=== PATIENT | female | born 1970 | race African-American/Black ===

== ENCOUNTER 2020-08-20 08:40 | Emergency (ER) | payer OTHER, SELFPAY ==
--- NOTE | ~2020-08-20 | XR_ITS ---
XR shoulder RT min 2V 08/20/2020 09:04 Indication: Right anterior shoulder pain Procedure: 4 views right shoulder Comparison: No prior studies for comparison. Findings: There is mild polyarticular osteoarthritis of the right shoulder. No fracture or traumatic malalignment. Anatomic alignment. No significant soft tissue abnormality. Lungs are unremarkable. No foreign bodies. Impression: 1: Mild polyarticular osteoarthritis of the right shoulder. Reviewed, dictated and finalized at location B. Impression: 1: Mild polyarticular osteoarthritis of the right shoulder.
[2020-08-20 08:50] VITALS: BP 173/101; PULSE 71; RESP 18; TEMP 36.3; O2SAT 97
--- NOTE | 2020-08-20 08:55 | ED.GENADULT ---
HPI - General Adult General Chief complaint: Extremity Injury, Upper Stated complaint: right shoulder pain Time Seen by Provider: 08/20/20 08:43 Source: RN notes reviewed History of Present Illness HPI narrative: Patient presents to emergency department from home for right shoulder pain. 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 and that turning the wheels and these buses seem to aggravate the symptoms even more states she took no previous pain medications morning she denies any fevers or chills chest pain shortness of breath numbness or tingling in extremities or any other symptoms patient states she drove herself to the emergency department Related Data Allergies Allergy/AdvReac Type Severity Reaction Status Date / Time Penicillins Allergy Itching Verified 08/20/20 08:53 Review of Systems Review of Systems: Narrative: Gen.: Denies fevers or chills ENT: Denies congestion Respiratory: Denies shortness of breath or cough CV: Denies chest pain or palpitations GI: Denies abdominal pain nausea, emesis Musculoskeletal: HPI Neuro: Denies numbness, tingling, weakness or focal weakness Skin: Denies rash Except as documented, all other systems reviewed and negative [facility] Past Medical History Medical History (Updated 08/20/20 @ 09:18 by Eduardo Kenyon DO) Patient denies significant medical history Family History Family History (Updated 01/22/14 @ 07:13 by DOCTOR UNKNOWN) Other Family history of arthritis Social History Social History Smoking status: Never smoker Alcohol intake: current Gender identity (if verbalized by the patient): Female Exam Narrative: Exam Narrative: APPEARANCE: No acute distress, nontoxic, resting in bed EYES: EOMI HEENT: Normocephalic, atraumatic, OMM RESPIRATORY: No respiratory distress Clear to auscultation bilaterally with no rhonchi wheezing or rales. CARDIOVASCULAR: Regular rate and rhythm without murmurs rubs or gallops. ABDOMINAL: Soft, nontender, nondistended, no rebound or guarding MUSCULOSKELETAl: Moves all extremities. No clubbing, cyanosis or edema. Tender palpation of the right anterior and lateral shoulder no swelling or ecchymosis pain with flexion or abduction greater than 45 degrees with passive range of motion pain with flexion abduction greater than 90 degrees no tenderness of the right elbow or wrist, radial pulse 2+ neurovascular intact NEURO: Awake and alert. Following commands, speech normal, no focal deficits SKIN:: Warm, dry. No rashes lesions or abrasions PSYCHIATRIC: Normal affect/mood, Course Course Emergency Course: Discussed with patient results of workup and diagnosis. Discussed need for follow-up with primary care, proper use of medication, and reasons to return to the emergency department. 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
--- NOTE | 2020-08-20 09:03 | ECG_ITS ---
Measurements Intervals [place] Rate: 65 P: 51 [place]: 176 QRS: 5 QRSD: 89 T: 22 QT: 422 QTc: 442 Interpretive Statements SINUS RHYTHM POSSIBLE LEFT ATRIAL ENLARGEMENT VOLTAGE CRITERIA FOR LVH BORDERLINE T WAVE ABNORMALITY- ANTEROLAT/INF LEADS BASELINE ARTIFACT- V1 BORDERLINE ECG Electronically Signed On 08-20-2020 10:26:06 CDT by Eros Granda D.O.
[2020-08-20] MEDS: IBUPROFEN 600 MG TABLET PO (09:06)
[2020-08-20 09:26] VITALS: BP 160/96; PULSE 66; RESP 18; O2SAT 99
== END 2020-08-20 09:30 | disposition home or self-care (01) ==
PROVIDERS: Emergency Provider Emergency Medicine; PCP Internal Medicine
DX: M25.511 Pain in right shoulder (principal); M19.011 Primary osteoarthritis, right shoulder; R94.31 Abnormal electrocardiogram [ECG] [EKG]
CPT/HCPCS: 73030; 93005; 99283; A4565; A9270

== ENCOUNTER → 2020-10-04 10:07 | Outpatient (CLI) | payer OTHER, SELFPAY ==
--- NOTE | ~2020-10-04 | MR_ITS ---
EXAMINATION: MR shoulder RT wo con DATE: 10/04/2020 10:44 INDICATION: Right shoulder pain TECHNIQUE: Magnetic resonance imaging (MRI) of the right shoulder was performed without intravenous c ontrast. Sequences included axial PD-weighted FS FSE, coronal oblique PD-weighted FS FSE, coronal obl ique T2-weighted FS FSE, sagittal PD-weighted FS FSE, and sagittal T1-weighted SE. COMPARISON: None. FINDINGS: Coracoacromial arch: The acromion undersurface is curved in morphology (type II). The coracoacromial ligament is normal. M oderate acromioclavicular osteoarthritis with subarticular cystic change at both sides of the joint s pace. Rotator cuff: Moderate supraspinatus and infraspinatus tendinopathy. There is a high-grade partial if not full-thic kness tear measuring approximately 10 mm AP and 10 mm medial to lateral. The teres minor tendon is no rmal. Moderate subscapularis tendinopathy. Mild fatty atrophy of the supraspinatus and infraspinatus tendons. Biceps tendon, glenoid labrum and glenohumeral cartilage: Moderate tendinopathy of the intra-articular long head biceps tendon without definitive tear. Mild gl enohumeral osteoarthritis with partial thickness cartilage loss along the superomedial aspect of the humeral head. And along the posterior and superior margins of the glenoid. Irregular degenerative tea ring of the posterior superior to anteroinferior glenoid labrum. Fluid: Physiologic amount of fluid in the glenohumeral joint and biceps tendon sheath. No loose osteochondra l bodies. Small amount of fluid in the subacromial/subdeltoid bursa as well as the subcoracoid bursa which could be due to either full-thickness tear/perforation of the rotator cuff or mild bursitis. Bones: Bone alignment is normal. No fracture or pathologic marrow replacing process. Cystic change at the gr eater and lesser tuberosities. IMPRESSION: 1. Moderate subscapularis, supraspinatus and infraspinatus tendinopathy with small high-grade partial if not full-thickness tear at the superior facet footplate of the supraspinatus tendon. 2. Mild glenohumeral osteoarthritis with degenerative tearing of the posterior superior to anterosupe rior glenoid labrum. 3. Moderate tendinopathy of the intra-articular long head biceps tendon tear 4. Moderate acromioclavicular osteoarthritis. 5. Small amount fluid in the subacromial/subdeltoid and subcoracoid bursae which could be due to exte nsion of joint fluid through the full-thickness rotator cuff tear/perforation and/or due to bursitis. Reviewed, dictated and finalized at location A. IMPRESSION: 1. Moderate subscapularis, supraspinatus and infraspinatus tendinopathy with sm all high-grade partial if not full-thickness tear at the superior facet footpla te of the supraspinatus tendon. 2. Mild glenohumeral osteoarthritis with degenerative tearing of the posterior superior to anterosuperior glenoid labrum. 3. Moderate tendinopathy of the intra-articular long head biceps tendon tear 4. Moderate acromioclavicular osteoarthritis. 5. Small amount fluid in the subacromial/subdeltoid and subcoracoid bursae whic h could be due to extension of joint fluid through the full-thickness rotator c uff tear/perforation and/or due to bursitis.
== END ==
DX: M25.511 Pain in right shoulder (principal); S43.431A Superior glenoid labrum lesion of right shoulder, initial encounter; S46.111A Strain of muscle, fascia and tendon of long head of biceps, right arm, initial encounter; M19.011 Primary osteoarthritis, right shoulder
CPT/HCPCS: 73221

== ENCOUNTER 2022-02-09 18:43 | Emergency (ER) | payer OTHER, SELFPAY ==
--- NOTE | ~2022-02-09 | XR_ITS ---
EXAMINATION: XR chest 2V DATE: 02/09/2022 19:24 INDICATION: Wheezing. TECHNIQUE: Frontal and lateral views of the chest were obtained. COMPARISON: Chest 2 views 10/15/2018, chest CT 10/15/2018 FINDINGS: There is chronic mild elevation of right hemidiaphragm. No pneumonia, pleural effusion, or pneumothorax. The heart size is normal. IMPRESSION: 1. No acute cardiopulmonary disease. Reviewed, dictated and finalized at location A.
--- NOTE | ~2022-02-09 | CT_ITS ---
EXAMINATION: CTA chest PE abdomen pel DATE: 02/10/2022 00:31 INDICATION: Shortness of breath and wheezing TECHNIQUE: Computed tomography angiography (CTA) of the chest was performed with 100 mL Omnipaque-350 intravenous contrast timed to evaluate the pulmonary arteries. Subsequent postcontrast images of the abdomen and pelvis are obtained. Coronal maximum intensity projection 3D-reconstructions were create d by the technologist. The dose-length product (DLP) was 2317.72 mGy-cm. Automated exposure control a nd iterative reconstruction technique were employed. COMPARISON: 10/15/2018 FINDINGS: CTA CHEST: The pulmonary arteries are well-opacified. No pulmonary embolism is identified. There is m ild dependent atelectasis. The lungs are free of focal airspace opacities. No pleural effusion or pne umothorax. No pathologically enlarged thoracic lymph nodes are identified. The heart size is normal. There is mild thoracic spondylosis. ABDOMEN/PELVIS CT: The liver, spleen, pancreas, gallbladder, and adrenal glands are normal. There is a 2 mm nonobstructing stone of the right kidney upper pole. There is a 2 mm nonobstructing stone in t he left mid kidney. No pathologically enlarged abdominal or pelvic lymph nodes are identified. There is no free intraperitoneal gas or evidence of bowel obstruction. There is a surgical anastomosis in t he sigmoid colon. The appendix is normal. A uterine fibroid is noted. There is mild lumbar spondylosi s. IMPRESSION: 1. No acute cardiopulmonary abnormality. 2. No acute abnormality of the abdomen or pelvis. 3. Bilateral nonobstructing nephrolithiasis. Reviewed, dictated and finalized at location B.
[2022-02-09 18:46] VITALS: BP 179/93; PULSE 74; RESP 20; TEMP 36.3; O2SAT 100
--- NOTE | 2022-02-09 18:49 | ECG_ITS ---
Measurements Intervals [place] Rate: 68 P: 54 [place]: 179 QRS: 8 QRSD: 79 T: 46 QT: 384 QTc: 411 Interpretive Statements SINUS RHYTHM LEFT VENTRICULAR HYPERTROPHY BORDERLINE ECG COMPARED TO ECG 08/20/2020 09:11:03 NO SIGNIFICANT CHANGES Electronically Signed On 02-09-2022 21:42:05 CDT by Eros Granda D.O.
[2022-02-09 19:14] LABS: Basophils Absolute Auto 0.1 K/mm3 (0.0-0.1); Basophils Percent Auto 1.1 % (0.2-1.2); Eosinophils Absolute Auto 0.6 K/mm3 (0-0.3); Eosinophils Percent Auto 11.1 % (0-4.4); Hematocrit 36.9 % (37.0-47.0); Immature Granulocyte Absolute 0.01 K/mm3 (0.00-0.031); Immature Granulocyte Percent A 0.2 % (0-0.5); Lymphocytes Absolute Auto 2.35 K/mm3 (0.9-3.2); Lymphocytes Percent Auto 42.7 % (18.3-44.2); Mean Corpuscular HGB Conc 29.8 g/dl (32-36); Mean Corpuscular Hemoglobin 26.9 pg (26-34); Mean Corpuscular Volume 90.2 fl (80-100); Mean Platelet Volume 9.9 fl (7.4-10.4); Monocytes Absolute Auto 0.5 K/mm3 (0.1-0.6); Monocytes Percent Auto 9.5 % (2.6-8.5); Neutrophils Percent Auto 35.4 % (45.5-73.1); Platelet Count Result 283 k/mm3 (150-375); Red Blood Count 4.09 M/mm3 (4.2-5.4); Red Cell Distribution Width 19.4 % (11.5-14.5); White Blood Count 5.5 K/mm3 (4.5-10.0)
[2022-02-09 19:23] LABS: Alanine Aminotransferase 23 U/L (6-35); Albumin Level 4.5 g/dL (3.5-5.1); Alkaline Phosphatase 75 U/L (38-126); Anion Gap 16 mmol/L (8-16); Aspartate Amino Transferase 24 U/L (14-36); Bilirubin,Total 0.3 mg/dL (0.2-1.3); Blood Urea Nitrogen 12 mg/dL (7-17); Calcium 8.8 mg/dL (8.4-10.2); Carbon Dioxide 23 mmol/L (22-30); Chloride 104 mmol/L (98-107); Estimated CRCL calculation 81 ml/min; Estimated Glomerular Filt Rate > 60; Glucose 87 mg/dL (65-110); Potassium 3.6 mmol/L (3.4-5.0); Sodium 143 mmol/L (137-145)
[2022-02-09 22:04] VITALS: BP 164/88; PULSE 73; RESP 18; O2SAT 94
[2022-02-09 22:20] VITALS: PULSE 67; RESP 16
[2022-02-09] MEDS: IPRATROPIUM BR 0.02% INH SOLN 0.5 MG/2.5 ML VIAL INHALATION (22:20)
[2022-02-09] MEDS: ALBUTEROL SULFATE NEB 2.5 MG/3 ML INH 5 MG INHALATION (22:20)
[2022-02-09] MEDS: methylPREDNISolone SOD SUCC 125 MG VIAL IV PUSH (22:29)
[2022-02-09 23:17] LABS: NT Pro B Type Natriuretic Pept 141 pg/mL (5-100); Troponin I < 0.012 ng/mL (0.000-0.034)
--- NOTE | 2022-02-09 23:39 | ED.GENADULT ---
HPI - General Adult General Chief complaint: Shortness of Breath/Dyspnea Stated complaint: WHEEZING Time Seen by Provider: 02/09/22 21:57 History of Present Illness HPI narrative: Patient is a 51-year-old female who presents the emergency department with chief complaint of shortness of breath. The patient reports that she has been having symptoms for the last month reports that she has been wheezing and coughing reports that she is had a productive cough productive of yellow sputum. Patient states that she is had no real fevers with this and reports that she went to urgent care today and they told her to come to the emergency department due to the wheezing. Related Data Allergies Allergy/AdvReac Type Severity Reaction Status Date / Time Penicillins Allergy Itching Verified 08/20/20 08:53 Review of Systems Review of Systems: A 10 system review of systems was completed on the patient and is negative except for what is stated in the HPI. Nursing and ancillary documentation was reviewed. [facility] Past Medical History Medical History Patient denies significant medical history Family History Family History Other Family history of arthritis Social History Social History Smoking status: Never smoker Alcohol intake: current Gender identity (if verbalized by the patient): Female Exam Narrative: GENERAL: Well-appearing, well-nourished, and in no acute distress. HEAD: Normocephalic, atraumatic. EYES: PERRLA and EOMI. ENT: Nares clear, no rhinorrhea or epistaxis. Mucous membranes moist. NECK: Supple. CHEST: Clear to auscultation. No respiratory distress. HEART: Regular rate and rhythm. No murmur heard. Normal peripheral pulses. ABDOMEN: Soft, nontender, nondistended, normal active bowel sounds. EXTREMITIES: Normal range of motion. No edema. SKIN: Warm, dry, no rash. NEURO: No focal deficits. Alert and oriented x3. PSYCH: Normal mood and affect. Course Vital Signs Vital signs: Vital Signs Temperature 36.3 C L 02/09/22 18:46 Pulse Rate 74 02/09/22 18:46 Respiratory Rate 20 02/09/22 18:46 Blood Pressure 179/93 H 02/09/22 18:46 Pulse Oximetry 100 02/09/22 18:46 Oxygen Delivery Room Air 02/09/22 18:46 Temperature 36.3 C L 02/09/22 18:46 Pulse Rate 67 02/09/22 22:20 Respiratory Rate 16 02/09/22 22:20 Blood Pressure 164/88 H 02/09/22 22:04 Pulse Oximetry 94 02/09/22 22:04 Oxygen Delivery Room Air 02/09/22 18:46 Medical Decision Making Vital Signs Vital Signs: Vital Signs Temperature 36.3 C L 02/09/22 18:46 Pulse Rate 74 02/09/22 18:46 Respiratory Rate 20 02/09/22 18:46 Blood Pressure 179/93 H 02/09/22 18:46 Pulse Oximetry 100 02/09/22 18:46 Oxygen Delivery Room Air 02/09/22 18:46 Temperature 36.3 C L 02/09/22 18:46 Pulse Rate 67 02/09/22 22:20 Respiratory Rate 16 02/09/22 22:20 Blood Pressure 164/88 H 02/09/22 22:04 Pulse Oximetry 94 02/09/22 22:04 Oxygen Delivery Room Air 02/09/22 18:46 Lab Data Result diagrams: 02/09/22 19:04 02/09/22 19:04 Labs: Lab Results 02/09/22 02/09/22 02/09/22 Range/Units 19:04 19:04 22:17 WBC 5.5 (4.5-10.0) K/mm3 RBC 4.09 L (4.2-5.4) M/mm3 Hgb 11.0 L (12.0-15.0) g/dL Hct 36.9 L (37.0-47.0) % MCV 90.2 (80-100) fl MCH 26.9 (26-34) pg MCHC 29.8 L (32-36) g/dl RDW 19.4 H (11.5-14.5) % Plt Count 283 (150-375) k/mm3 MPV 9.9 (7.4-10.4) fl Immature Gran % (Auto) 0.2 (0-0.5) % Neut % (Auto) 35.4 L (45.5-73.1) % Lymph % (Auto) 42.7 (18.3-44.2) % Burke % (Auto) 9.5 H (2.6-8.5) % Eos % (Auto) 11.1 H (0-4.4) % Baso % (Auto) 1.1 (0.2-1.2) % Lymph # (Auto) 2.35 (0.9-3.2) K/mm3 Burke # (Auto) 0.5
[2022-02-09 23:44] LABS: Appearance Urine Clear (Clear); Bilirubin Urine Negative (Negative); Blood Urine Negative (Negative); Color Urine Yellow (Yellow); Glucose Urine UA Negative (Negative); Ketones Urine Negative (Negative); Leukocyte Esterase Ur Negative LEU/UL (Negative); Nitrate Urine Negative (Negative); Protein Urine Negative (Negative); Urobilinogen Urine 0.2 mg/dL (<2.0)
[2022-02-09 23:49] LABS: Add Urine Microscopic? NO
[2022-02-10 00:07] LABS: D Dimer 0.74 ug/mL (<0.48)
== END 2022-02-10 01:30 | disposition home or self-care (01) ==
PROVIDERS: Emergency Medicine; Emergency Provider Emergency Medicine; PCP Internal Medicine
DX: J20.8 Acute bronchitis due to other specified organisms (principal); I51.7 Cardiomegaly; N20.0 Calculus of kidney
CPT/HCPCS: 36415; 71046; 71275; 74177; 80053; 81003; 83880; 84484; 85025; 85380; 93005; 94640; 96374; 99284; J2930; Q9967

== ENCOUNTER 2024-07-17 19:27 | Emergency (ER) | payer OTHER, SELFPAY ==
--- OUTSIDE RECORDS SUMMARY | 2024-07-17 19:29 | XMS_ITS | Data Portability ---
Author Organization [place] [facility] ([facility]) Address [address] [place] [id number] Care Team Providers Care Mental Health Coordinator Name Role Phone LUCERO OHARA Referring Provider Assessment No assessment recorded. Plan of Treatment Reminders Order Date Submit Date Provider Last Modified By Organization Details Last Modified Time Details Appointments None record ed. Lab None record ed. Referral None record ed. Procedures None record ed. Surgeries None record ed. Imaging None record ed. Medication Orders None record ed. Patient TargetsNo targets recorded. Patient InstructionsNo instructions recorded. Reason for Referral None Reported. Procedures Surgical History Date Name Laterality Status Provider Name and Address Organization Details Recorded Time 03/27/2019 Sleep Study completed Neville Ramon MD, F.C.C.P. [address] [place] [address], [place], [address], [facility] 03/31/2019 08:59:17 Imaging Results None recorded. Procedure Notes None recorded. Medical Equipment None Reported. Medications Name Sig Start Date Stop Date Status Note LastModified by Organization Details LastModified Time lisinopril 20 mg-hydrochlorothiaz olivia 12.5 mg tablet active Not Available Not Yokasta ilable Not Available azithromycin 250 mg tablet active Not Available Not Available Not Available promethazine 6.25 mg/5 mL oral syrup active Not Available Not Yokasta ilable Not Available prednisone 20 mg tablet active Not Available Not Available Not Available benzonatate 100 mg capsule active Not Available Not Available Not Available montelukast 10 mg tablet active Not Available Not Available Not Available allopurinol 300 mg tablet active Not Available Not Available Not Available methylprednisolone 4 mg tablets in a dose pack active Not Available Not Available No t Available fluticasone propionate 50 mcg/actuation nasal spray,suspension active Not Available Not Avail able Not Available amoxicillin 875 mg-potassium clavulanate 125 mg tablet active Not Available Not Available Not Available Ventolin HFA 90 mcg/actuation aerosol inhaler active Not Available Not Availa ble Not Available Vitals None Recorded Social History None recorded. Functional Status None recorded. Mental Status None recorded. Family History Nothing Reported. Medical History No medical history recorded. Gynecological HistoryNo gynecological history recorded. Obstetrics History GPAL:G 0 P 0 0 0 0 Past Encounters Encounter ID Performer Location Encounter Start Date Encounter Closed Date Diagnosis/Indication Diagnosis SNOMED-CT Code Diagnosis ICD10 Code Diagnosis Note [id number] Neville Ramon MD, F.C.C.P. [facility] [phone] [place] [address] 03/27/2019 20:41:50 03/28/2019 09:05:43 Obstructive sleep apnea of adult 8516061861 103 G47.33 Health Concerns Section Related Observation LastModified by Organization Detai ls LastModified Time None Recorded Concern Status LastModified by Organization Details LastModified Time None Recorded Advance Directives Directive None Recorded Payers Encounter Date Sequence Insurance Name Policy Number Policy [place] Covered Member ID [place] Member ID Guarantor Name 03/27/2019 [id number] Lisset Gwen [id number] Lisset Hidalgo 03/27/2019 [facility] ATTN: KIKI Hidalgo [id number] Lisset Hidalgo OBGyn Episode No OBEpisode recorded.
--- OUTSIDE RECORDS SUMMARY | 2024-07-17 19:29 | XMS_ITS | Clinical Summary ---
Author Organization Address [address] [place] [address] Care Team Providers Care Criminal Justice Lawyer Name Role Phone Unavailable Primary Care Provider Unavailabl e Immunizations Immunization Administration Dates Next Due Covid-19, Mrna, Lnp-s, Pf, 30 Mcg/0.3 Ml Dose (P tatyzer) 03/12/2021,02/19/2021 Social History Tobacco Use Types Packs/Day Years Used Date Smoking Tobacco: Never Assessed Comments Unknown Sex and Gender Information Value Date Recorded Sex Assigned at Not on file Legal Sex Female 2:49 PM CDT Gender Identity Not on file Sexual Orientation Not on file Plan of Treatment Health Maintenance Due Date Last Done Comments Hepatitis C Virus (HCV) Screening 1970 TdaP Immunization 1970 Hepatitis B Immunization (1 of 3 - 19+ 3-dose series) 02/14/1987 Pap Smear 02/14/1989 Cervical Cancer Screening (CCS) 02/14/1998 HPV/Cotest 02/14/1998 Colonoscopy 02/14/2013 Colorectal Cancer Screening 02/14/2013 Cologuard 02/14/2018 Immunochemical Fecal Occult Blood 02/14/2018 Mammogram 02/14/2018 Pneumococcal Immunization (5 0+ years) (1 of 1 - PCV) 02/14/2018 Zoster Immunization (1 of 2) 02/14/2018 Influenza Immunization (#1) 2024 SARS-COV-2 Immunization (3 - 2023- season) 2024 03/12/2021, 02/19/2021 Respiratory Syncytial Virus (RSV) Immunization (Adult) (1 - 1-dose 75+ series) 02/14/2043 Meningococcal Immunization (ACWY) Aged Out No longer eligible b ased on patient's age to complete this topic Pneumococcal Immunization Combined Aged Out No longer eligible b ased on patient's age to complete this topic Rotavirus Immunization Aged Out No lo nger eligible based on patient's age to complete this topic
--- OUTSIDE RECORDS SUMMARY | 2024-07-17 19:29 | XMS_ITS | Clinical Summary ---
Author Organization [facility] Address [address] [place] [address] Care Team Providers Care Wellness Instructor Name Role Phone Gregory Keane MD Primary Care Provider [phone] Allergies No known active allergies Social History Tobacco Use Types Packs/Day Years Used Date Smoking Tobacco: Never Smokeless Tobacco: Never Alcohol Use Standard Drinks/Week Comments Yes 0 (1 standard drink = 0.6 oz pur e alcohol) Occasionally Comments No Sex and Gender Information Value Date Recorded Sex Assigned at Not on file Legal Sex Female 7:12 PM CDT Gender Identity Not on file Sexual Orientation Not on file Last Filed Vital Signs Vital Sign Reading Time Taken Comments Blood Pressure 167/109 04/05/2022 7:12 AM SYSTEMS MGR Pulse 69 04/05/2022 7:13 AM SYSTEMS MGR Temperature 37 C (98.6 F) 04/05/2022 7:13 AM SYSTEMS MGR Respiratory Rate 18 04/05/2022 7:13 AM SYSTEMS MGR Oxygen Saturation 93% 04/05/2022 7:13 AM SYSTEMS MGR Inhaled Oxygen Concentration - - Weight 128 kg (282 lb 3 oz) 04/05/2022 5:[address] Height 177.8 cm (5' 10 ) 04/05/2022 5:00 AM SYSTEMS MGR Body Mass Index 40.49 04/05/2022 5:00 AM SYSTEMS MGR Plan of Treatment Health Maintenance Due Date Last Done Comments Cervical Cancer Screening Pa p Smear (Age 30 to 64) Every 3 Years 1968 Colorectal Cancer Screening Colonoscopy (10 Years) 1968 Annual Physical 02/14/1971 Hepatitis C 02/14/1986 DTaP, Tdap and Td Vaccines ( 1 - Tdap) 02/14/1987 Hepatitis B Vaccines (1 of 3 - 19+ 3-dose series) 02/14/1987 Cervical Cancer Screening Pa p with HPV Testing (Age 30 to 64) Every 5 Years 02/14/1998 Cervical Cancer Screening wi th HPV 02/14/1998 Mammogram Screening 2008 Zoster Vaccines (1 of 2) 02/14/2018 COVID-19 Vaccine (2023-2 5 season) 2024 03/12/2021, 02/19/2021 Influenza Adult (#1) 2024 04/10/2015 Meningococcal B Vaccine Aged Out No l onger eligible based on patient's age to complete this topic Meningococcal Vaccine Aged Out No teresa aldo eligible based on patient's age to complete this topic Pneumococcal Vaccine: Pediatrics (0 to 5 Years) and At-Risk Patients (6 to 64 Years) Aged Out No longer eligible b ased on patient's age to complete this topic RSV Immunizations Under 20 Months Aged Out No longer eligible b ased on patient's age to complete this topic Insurance [employer] Care Teams Wellness Instructor Relationship Specialty Start Date End Date Gregory Keane MD [address] [facility] [place] [address] PCP - General INTERNAL MEDICINE 01/14/21
[2024-07-17 20:42] VITALS: BP 207/119; PULSE 90; RESP 14; TEMP 36.7; O2SAT 100
[2024-07-17 21:42] LABS: Influenza A QL RT-PCR Positive (Negative); Influenza B QL RT-PCR Negative (Negative); RSV RNA, RT-PCR Negative (Negative); SARS-CoV-2 RNA PCR Negative (Negative)
--- NOTE | 2024-07-17 23:07 | PC.NURSE ---
Pt up to triage desk. Angry about wait times. States I know that man that just went back is here with the same stuff that I am. This is some racist shit going on up in here. Attempted to reassure pt that patients are not always seen in the order that they arrived but by acuity. Apologized for pt's wait. Pt waled away from desk and sat back down.
[2024-07-17 23:48] VITALS: BP 204/106; PULSE 84; RESP 20; TEMP 36.9; O2SAT 100
--- OUTSIDE RECORDS SUMMARY | 2024-07-18 00:08 | XMS_ITS | Clinical Summary ---
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 Pulse 69 04/05/2022 7:13 AM METAL STAMPING MACHINE OPERATOR Temperature 37 C (98.6 F) 04/05/2022 7:13 AM METAL STAMPING MACHINE OPERATOR Respiratory Rate 18 04/05/2022 7:13 AM METAL STAMPING MACHINE OPERATOR Oxygen Saturation 93% 04/05/2022 7:13 AM METAL STAMPING MACHINE OPERATOR Inhaled Oxygen Concentration - - Weight 128 kg (282 lb 3 oz) 04/05/2022 5:[address] Height 177.8 cm (5' 10 ) 04/05/2022 5:00 AM METAL STAMPING MACHINE OPERATOR Body Mass Index 40.49 04/05/2022 5:00 AM METAL STAMPING MACHINE OPERATOR Plan of Treatment Health Maintenance Due Date [...] complete this topic Insurance [employer] Care Teams Real Estate Agent Relationship Specialty Start Date End Date Gregory Keane MD [address] [facility] [place] [address] PCP - General INTERNAL MEDICINE 01/14/21
--- OUTSIDE RECORDS SUMMARY | 2024-07-18 00:09 | XMS_ITS | Clinical Summary ---
Author Organization [facility] Address [address] [place] [address] Care Team Providers Care Trouble Locater Name Role Phone Unavailable Primary Care Provider [...]
--- NOTE | 2024-07-18 00:20 | ED.FEVER ---
HPI - Fever General Chief Complaint: Fever Stated Complaint: dizziness, headache, flu symptoms Time Seen by Provider: 07/18/24 00:01 History of Present Illness HPI Narrative: Patient is a 54-year-old female who presents to the emergency department this evening complaining of headaches, body aches, fevers, nasal congestion and and a cough for the past 4 days. Patient states that he she saw her primary care physician this afternoon and placed on an oral antibiotic and gave her some shot to help with her symptoms although she is unsure what medication was administered IM. Patient states that the fevers have Peace but her symptoms have persisted. Admits that she has been taking her blood pressure medications as prescribed. Denies any additional symptoms or concerns at this time. Related Data Allergies Allergy/AdvReac Type Severity Reaction Status Date / Time Penicillins Allergy Itching Verified 08/20/20 08:53 Review of Systems Review of Systems: All systems are reviewed and are negative unless stated otherwise in the HPI. REPLACED BY [facility] Past Medical History Medical History Patient denies significant medical history Family History Family History Other Family history of arthritis Social History Social History Smoking status: Never smoker Alcohol intake: current Gender identity (if verbalized by the patient): Female Exam Narrative: General: Alert, awake, afebrile, in no acute distress. HEENT: PERRL, no rhinorrhea, no post nasal drip, oropharynx clear. Neck: Trachea midline, no JVD, no lymphadenopathy. Cardiovascular: Regular rate and rhythm, no murmurs, rubs or gallops, no peripheral edema. Respiratory: Clear to auscultation bilaterally, no tachypnea, no wheezing, no rhonchi, no rubs, no respiratory distress. Abdomen: Soft, nontender, nondistended, no rebound, no guarding, no peritoneal signs. Musculoskeletal: No joint swelling or deformity, normal muscle tone. Skin: No rashes or petechia, no signs of infection. Psychiatric: Alert and oriented, normal behavior and judgment for situation. Neurological: Alert and oriented to person, place, and time. Follows all commands. No focal deficits, speech is clear and fluent. Course Vital Signs Vital signs: Vital Signs Temperature 98.1 F 07/17/24 20:42 Pulse Rate 90 07/17/24 20:42 Respiratory Rate 14 07/17/24 20:42 Blood Pressure 207/119 H 07/17/24 20:42 Pulse Oximetry 100 07/17/24 20:42 Oxygen Delivery Room Air 07/17/24 20:42 Temperature 98.5 F 07/17/24 23:48 Pulse Rate 84 07/17/24 23:48 Respiratory Rate 20 07/17/24 23:48 Blood Pressure 204/106 H 07/17/24 23:48 Pulse Oximetry 100 07/17/24 23:48 Oxygen Delivery Room Air 07/17/24 20:42 MDM - Fever MDM Narrative Medical decision making narrative: The patient was evaluated by myself in the emergency department. History is obtained from patient who is an independent historian and physical exam was performed. External medical records were reviewed at this time. Viral swabs were obtained and noted to be positive for influenza A. Differential diagnosis considerations include acute viral syndrome including influenza/COVID/RSV. Comorbidities impacting this visit include history of hypertension. I have evaluated and discussed social determinants of health with the patient that could potentially impact subsequent diagnosis and treatment plans. On repeat assessment of the patient, reevaluation revealed that the patient is doing well and is in no acute distress. Patient symptoms have remained stable since she arrived to our emergency department. Repeat vital signs were all reviewed and noted to be stable, patient was noted to be hypertensive in triage initially with a blood pressure of 207/119, current blood pressure 191/111. Patient was informed that she needs to monitor this closely at home and continue taking her blood pressure medications as prescribed. This her blood pressure could be elevated today secondary to her viral illness, however, she needs to keep a blood pressure log and if her blood pressure does persistently stay elevated she may need to have her medications readjusted by her primary care physician and patient is agreeable with this plan. Differential diagnosis and treatment plan were discussed with the patient at bedside. Patient agrees with discussion and after shared medical decision making agrees with discharge. All questions were answered to the patient's satisfaction. Patient will follow up with her PCP in 3-5 days. Patient was provided with strict return precautions and instructed to return to the emergency department if any new or worsening symptoms develop. The patient was discharged in stable condition. Lab Data Labs: Lab Results 07/17/24 Range/Units 20:51 Influenza A (RT-PCR) Positive A (Negative) Influenza B (RT-PCR) Negative (Negative) RSV (RT-PCR) Negative (Negative) SARS-CoV-2 RNA (RT-PCR) Negative (Negative) Discharge Plan Discharge Clinical Impression: Influenza, Hypertension Patient Disposition: Home, Self-Care Condition: Improved Instructions: Antibiotic Form, Influenza (ED), Hypertension (ED) Additional Instructions: Please follow-up with your family doctor within the next 3-5 days. Return to the ED if any new or worsening symptoms develop. You informed your blood pressure was elevated today, this could be due to your viral infection. You to keep an eye on your blood pressure and monitor at home by checking it twice daily same time every day in the morning and same time every day at night and to keep a blood pressure log and to take this log with you to your primary care physician's appointment and he may need your blood pressure medications readjusted. Use ibuprofen and/or Tylenol for body aches and fevers. Patient Language: Hungarian Prescriptions: No Action ibuprofen [IBU] 600 mg tablet 600 mg PO Q6H PRN (Reason: pain) Qty: 20 0RF albuterol sulfate 90 mcg/actuation HFA aerosol inhaler 2 puff inhalation QID PRN (Reason: shortness of breath or wheezing) Qty: 8.5 0RF doxycycline hyclate 100 mg tablet 100 mg PO BID Qty: 14 0RF prednisone 20 mg tablet 40 mg PO DAILY 5 Days Qty: 10 0RF Follow-up/Referrals: Diya,Gregory Gale MD [Primary Care Provider] - 3 Days Time of Disposition: 00:21
[2024-07-18 00:25] VITALS: RESP 20; O2SAT 99
== END 2024-07-18 01:30 | disposition home or self-care (01) ==
PROVIDERS: Emergency Provider Emergency Medicine; PCP Internal Medicine
DX: J10.1 Influenza due to other identified influenza virus with other respiratory manifestations (principal); I10 Essential (primary) hypertension; Z20.822 Contact with and (suspected) exposure to COVID-19
CPT/HCPCS: 87637; 99283